=== PATIENT | male | born 1985 | race Caucasian/White ===

== ENCOUNTER 2017-04-11 17:53 | Emergency (ER) | payer BC ==
[~2017-04-11] VITALS: Ht 177.8 cm; Wt 92.3 kg
[~2017-04-11 17:53] MED LIST: BACTRIM DS 8001 TAB PO; CEPHALEXIN500 M1 PO; EC NAPROSYN500 MG PO; GENTAMICIN EYE D5 ML OS; NORCO 325 MG-51 TAB PO; PERCOCET 325 MG1 TA2 PO; SUPER B COMPLEX1 TA2 PO; TYLENOL PM EXTR1 TA1 PO
[2017-04-11 17:57] VITALS: BP 146/105
[2017-04-11 18:13] VITALS: TEMP 97.9
[2017-04-11] MEDS ORDERED: NORCOELIX PO (18:51)
[2017-04-11] MEDS ORDERED: CLEOCIN HCL300 MG PO (18:51)
[2017-04-11 19:04] VITALS: PULSE 90
== END 2017-04-11 19:04 | disposition home or self-care (01) ==
LOC: COL.ER 17:53
DX: J35.1 Hypertrophy of tonsils (principal); F17.210 Nicotine dependence, cigarettes, uncomplicated; Z98.890 Other specified postprocedural states
CPT/HCPCS: J1100; J1885; J7030